=== PATIENT | female | born 1990 | race Caucasian/White ===

== ENCOUNTER 2017-06-01 22:33 | Inpatient (IN) | payer BC ==
[~2017-06-01] VITALS: Ht 152.5 cm; Wt 73.2 kg
[2017-06-01 23:05] VITALS: BP 129/88; PULSE 86; TEMP 99.8
[2017-06-01 23:10] VITALS: BP 129/88; PULSE 86; TEMP 99.8
[2017-06-01] MEDS ORDERED: DICLEGIS (23:17)
[2017-06-02] VITALS (31 sets, daily range): BP systolic 100–134; BP diastolic 47–784; PULSE 80–113; TEMP 98–101.6
[2017-06-02 00:31] LABS: BASO % 0.3 % (0.0-2.0); EOS % 0.1 % (0-4.0); GRAN # 9.6 (1.4-6.5); GRAN % 80.6 % (42.2-75.2); HEMOGLOBIN 9.6 g/dl (12.5-16.0); LYMPH # 1.3 (1.2-3.4); LYMPH % 10.5 % (20.0-51.0); MEAN CELL VOLUME 80 fl (80.0-100.0); MEAN CORPUSCULAR HEMOGLOBIN 26 pg (27.0-31.0); MEAN CORPUSCULAR HGB CONC 32 g/dl (33.0-37.0); MEAN PLATELET VOLUME 11.5 fl (7.4-10.4); MONO % 8.1 % (1.7-9.3); PLATELET COUNT 260 K/mm3 (130-400); RED BLOOD COUNT 3.75 M/mm3 (4.10-5.30); WHITE BLOOD COUNT 11.9 K/mm3 (4.8-10.8)
[2017-06-02] MEDS ORDERED: MOTRIN 800800 MG/TAB PO (07:16)
[2017-06-02] MEDS ORDERED: PERCOCET 325 MG1 TA2 PO (07:16)
[2017-06-03 02:58] VITALS: BP 107/51; PULSE 75; TEMP 97.5
[2017-06-03 06:30] VITALS: BP 101/65; PULSE 72; TEMP 97.5
[2017-06-03 08:30] VITALS: BP 109/57; PULSE 83; TEMP 97.9
[2017-06-03 16:30] VITALS: BP 121/69; PULSE 86; TEMP 97.3
[2017-06-03 19:15] VITALS: BP 104/67; PULSE 74; TEMP 98.2
[2017-06-04 08:40] VITALS: BP 117/73; PULSE 74; TEMP 97.7
== END 2017-06-04 12:15 | disposition home or self-care (01) | DRG 766 ==
LOC: LDRO 22:33 → LDR 23:40 → OB 23:40
PROVIDERS: Obstetrics & Gynecology
PROC: 10D00Z1 Extraction of Products of Conception, Low, Open Approach (ICD-10-PCS; principal; 2017-06-02)
DX: O65.4 Obstructed labor due to fetopelvic disproportion, unspecified (principal); Z3A.37 37 weeks gestation of pregnancy; Z37.0 Single live birth
CPT/HCPCS: J0690; J1885; J2270; J2370; J2405; J2590; J7120

== ENCOUNTER 2020-09-10 13:18 | Inpatient (IN) | payer BC ==
[~2020-09-10] VITALS: Ht 152.4 cm; Wt 71.4 kg
[2020-09-10] VITALS (18 sets, daily range): BP systolic 98–133; BP diastolic 56–78; PULSE 60–93; TEMP 98.2
[~2020-09-10 13:18] MED LIST: DICLEGIS; MAALOX ANTACID1 TAB PO; MEDROL 4MG DOSPA4 MG PO; MOTRIN 800800 MG/TAB PO; NAPROXEN ER500 MG PO; NO HOME MEDICATIONS; NORCO 325 MG-51 TAB PO; PERCOCET 325 MG1 TA2 PO; PRILOSEC 20MG20 MG PO; ZANTAC 300300 MG PO; ZOFRAN 4MG T4 MG/TAB PO
--- NOTE | 2020-09-10 13:28 | NUR ---
Patient arrives to LR 4 via wheelchair from ER assisted by Umu Prescott RN. Patient reports painful contractions that started around 1130 today. Patient denies vaginal bleeding, ROM, and reports normal movement. Patient crying with contractions, assisted to bed and into gown. EFM explained and placed. Patient is a G2L1 at 36.2 weeks gestation with a history of delivery. Patient requesting repeat . 1331- SVE by Qing Mcgee RN 0. Patient prepped for section. Surinder oClon CRNA notified and requested at bedside. 1332- Dr. Franco notified by Umu Prescott RN, decision for section. Patient verbally consented by this RN and Qing Mcgee RN for spinal anesthesia/Tap Block/ section delivery. Patient RL. 1335- IV started in RAC by Qing Mcgee RN. Labs obtained and sent. LR infusing preop. Oxygen via simple mask at 10L. Patient repositioned LL. 1339- Patient taken off EFM and transferred to OR. 1340- In OR. EFM reapplied in OR. Patient sitting on OR table for spinal placement. 1343- Maternal heart rate tracing due to maternal position. Verified via anesthesia machine. 1345- Maternal heart rate tracing due to maternal position. Spinal anesthesia successful per Surinder Colon CRNA and patient laying down. 1350- Patient taken off EFM and abdominal prep performed. See intraoperative report.
--- NOTE | 2020-09-10 13:40 | NUR ---
Note time on OR EFM inaccurate.
[2020-09-10 14:08] LABS: BASO % 0.2 % (0.0-2.0); EOS % 0.2 % (0-4.0); GRAN # 9.5 (1.4-6.5); GRAN % 81.8 % (42.2-75.2); HEMATOCRIT 37.2 % (37.0-47.0); LYMPH # 1.4 (1.2-3.4); LYMPH % 11.7 % (20.0-51.0); MEAN CELL VOLUME 84 fl (80.0-100.0); MEAN CORPUSCULAR HEMOGLOBIN 27 pg (27.0-31.0); MEAN CORPUSCULAR HGB CONC 32 g/dl (33.0-37.0); MEAN PLATELET VOLUME 10.8 fl (7.4-10.4); MONO # 0.6 (0.1-0.6); MONO % 5.2 % (1.7-9.3); PLATELET COUNT 307 K/mm3 (130-400); RED BLOOD COUNT 4.45 M/mm3 (4.10-5.30); REDCELL DISTRIBUTION WIDTH-CV 13.8 % (11.5-14.5)
[2020-09-10] MEDS ORDERED: PERCOCET 325 MG1 TA2 PO (14:52)
[2020-09-10] MEDS ORDERED: MOTRIN 800800 MG/TAB PO (14:52)
[2020-09-11 04:20] VITALS: BP 115/69; PULSE 73; TEMP 97.9
[2020-09-11 07:35] VITALS: BP 115/67; PULSE 76; TEMP 98.1
--- NOTE | 2020-09-11 09:47 | NUR ---
Initial visit; Patient thanked [employer] for offering congratulations and God's blessings for the of her daughter. [employer] thanked mom for choosing [facility].
[2020-09-11 11:45] VITALS: BP 110/69; PULSE 64
--- NOTE | 2020-09-11 12:11 | NUR ---
1200 PATIENT TEARFUL AT THIS TIME. PATIENT REPORTS PAIN OF 3 AND THAT SHE FEELS IT IS JUST EXHAUSTION. RN OFFERED TO TAKE BABE BACK TO NURSERY, PATIENT REFUSED. RN ENCOURAGED PATIENT TO TURN DOWN LIGHTS IN ROOM AND REST. PATIENT AGREEABLE AND ENCOURAGING PATIENT WELL TO SLEEP.
[2020-09-11 20:00] VITALS: BP 109/68; PULSE 84; TEMP 98.4
[2020-09-12 07:25] VITALS: BP 103/56; PULSE 72; TEMP 97.7
[2020-09-12 15:30] VITALS: BP 115/47; PULSE 107; TEMP 98.3
[2020-09-12 21:00] VITALS: BP 132/70; PULSE 94; TEMP 97.7
[2020-09-13 04:00] VITALS: BP 133/72; PULSE 77; TEMP 98
[2020-09-13 08:05] VITALS: BP 119/75; PULSE 78; TEMP 97.9
== END 2020-09-13 11:20 | disposition home or self-care (01) | DRG 788 ==
LOC: LDRO 13:18 → LDR 13:20 → OB 15:25
PROVIDERS: ADMIT Obstetrics & Gynecology
PROC: 10D00Z1 Extraction of Products of Conception, Low, Open Approach (ICD-10-PCS; principal; 2020-09-10)
DX: O60.14X0 Preterm labor third trimester with preterm delivery third trimester, not applicable or unspecified (principal); O34.211 Maternal care for low transverse scar from previous cesarean delivery; O99.02 Anemia complicating childbirth; D64.9 Anemia, unspecified; O43.123 Velamentous insertion of umbilical cord, third trimester; O99.344 Other mental disorders complicating childbirth; F41.9 Anxiety disorder, unspecified; Z3A.36 36 weeks gestation of pregnancy; Z37.0 Single live birth; Z86.16 Personal history of COVID-19
CPT/HCPCS: J0690; J1885; J2175; J2370; J2405; J2590; J7120

== ENCOUNTER → 2023-03-24 | Outpatient (REF) | payer BC | LOC: ZCOL.LAB 15:28 | DX: H60.8X3 Other otitis externa, bilateral (principal) ==

== ENCOUNTER → 2023-07-29 | Outpatient (CLI) | payer BC | END | disposition home or self-care (01) | LOC: ZCOL.LAB 15:50 | DX: H60.63 Unspecified chronic otitis externa, bilateral (principal) ==